=== PATIENT | female | born 2000 | race Caucasian/White ===

== ENCOUNTER 2020-09-29 14:20 | Emergency (ER) | payer MEDICAID, SELFPAY ==
[2020-09-29 14:50] VITALS: BP 148/94; PULSE 100; RESP 18; TEMP 36.7; O2SAT 95; BMI 18.0
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
== END 2020-09-29 16:14 | disposition home or self-care (01) ==
PROVIDERS: Emergency Provider Nurse Practitioner Family; PCP Pediatrics Adolescent Medicine
DX: S16.1XXA Strain of muscle, fascia and tendon at neck level, initial encounter (principal); V59.50XA Passenger in pick-up truck or van injured in collision with unspecified motor vehicles in traffic accident, initial encounter
CPT/HCPCS: 99281